=== PATIENT | male | born 1960 | race American Indian/Alaskan Native ===

== ENCOUNTER 2019-06-22 08:26 | Emergency (ER) | payer SELFPAY ==
--- NOTE | 2019-06-22 09:33 | Emergency Department Report ---
ED General Adult HPI - General Chief complaint: Seizure Stated complaint: POSSIBLE SEIZURE Time Seen by Provider: 06/22/19 09:32 Source: patient, EMS ( EMS documentation not available at time of chart dictation ), RN notes reviewed Mode of arrival: Stretcher Limitations: Other (the patient appears to be intoxicated and impaired. The patient does not exhibit decision making capacity) - History of Present Illness Initial comments: This is a 59-year-old gentleman. This patient is not known to this provider previously. The patient is reportedly brought to the hospital for being drunk on mouthwash and having had seizures. The patient at one point indicated history of seizures and taking phenytoin. The patient indicated that he is homeless. The patient indicates it is not homicidal or suicidal. The patient denies physical pain. The patient cannot recall having a seizure. The patient is a poor historian. Patient cannot describe exacerbating or relieving factors. He makes no complaint of hallucinations. -: unknown Severity scale (0 -10): 0 Quality: other Consistency: other Improves with: other Worsens with: other Associated Symptoms: other - Related Data Previous Rx's Medication Instructions Recorded Last Taken Type Multivitamin with Folic Acid [[facility]vs 400 mcg PO QDAY #30 tablet 06/22/19 Unknown Rx One Daily Essential Tablet] chlordiazePOXIDE [Librium] 25 mg PO Q6H PRN #20 capsule 06/23/19 Unknown Rx Allergies Allergy/AdvReac Type Severity Reaction Status Date / Time haloperidol [From Haldol] Allergy Unknown Verified 06/22/19 08:40 ED Review of Systems ROS: Stated complaint: POSSIBLE SEIZURE Other details as noted in HPI Comment: Unobtainable due to pts medical conditions (see hpi) Constitutional: denies: fever Eyes: denies: eye discharge ENT: denies: congestion Cardiovascular: denies: syncope Gastrointestinal: denies: abdominal pain Psychiatric: denies: homicidal thoughts, suicidal thoughts ED Past Medical Hx - Past Medical History Previous Medical History?: Yes Hx Seizures: Yes - Social History Smoking Status: Unknown if ever smoked Substance Use Type: Alcohol - Medications Home Medications: Home Medications Medication Instructions Recorded Confirmed Last Taken Type Multivitamin with Folic Acid [[facility]vs 400 mcg PO QDAY #30 tablet 06/22/19 Unknown Rx One Daily Essential Tablet] chlordiazePOXIDE [Librium] 25 mg PO Q6H PRN #20 capsule 06/23/19 Unknown Rx ED Physical Exam - General Limitations: Other (the patient is a poor historian) General appearance: alert, in no apparent distress - Head Head exam: Present: atraumatic, normocephalic - Eye Eye exam: Present: EOMI. Absent: normal appearance (right eye appears to be opacified by cataract.) - ENT ENT exam: Present: normal exam, mucous membranes moist, normal external ear exam - Neck Neck exam: Present: normal inspection, full ROM. Absent: tenderness, meningismus - Respiratory Respiratory exam: Present: normal lung sounds bilaterally. Absent: respiratory distress - Cardiovascular Cardiovascular Exam: Present: regular rate, normal rhythm, normal heart sounds. Absent: bradycardia, tachycardia, irregular rhythm, systolic murmur, diastolic murmur, rubs, gallop - GI/Abdominal GI/Abdominal exam: Present: soft. Absent: distended, tenderness, guarding, rebound, rigid, pulsatile mass - exam: Present: normal inspection, other (chaperoned by mainor Vasquez) External exam: Present: normal external exam - Extremities Exam Extremities exam: Present: normal inspection, full ROM, other (2+ pulses noted in the bilateral upper, lower extremities. There is no long bone tenderness. Musculoskeletal compartments are soft. The pelvis is stable.) - Back Exam Back exam: Present: normal inspection, full ROM. Absent: tenderness, CVA tenderness (R), CVA tenderness (L), paraspinal tenderness, vertebral tenderness - Neurological Exam Neurological exam: Present: alert (the patient is alert to name. The patient follows commands.), other (there is no facial droop. The tongue is midline. Extraocular movements are intact bilaterally. There is 5 out of 5 strength bilateral upper, and lower extremities. Sensation is intact to light touch in bilateral upper, lower extremities) - Psychiatric Psychiatric exam: Absent: homicidal ideation, suicidal ideation - Skin Skin exam: Present: warm, dry, intact, normal color. Absent: rash ED Course Vital Signs 06/22/19 06/22/19 06/22/19 08:36 08:41 08:44 Temperature 97.7 F Pulse Rate 83 81 Respiratory 18 13 Rate Blood Pressure Blood Pressure 114/70 106/76 [Left] O2 Sat by Pulse 95 96 96 Oximetry 06/22/19 06/22/19 06/22/19 10:10 10:14 10:15 Temperature 97.3 F L Pulse Rate 82 88 93 H Respiratory 17 12 17 Rate Blood Pressure 106/76 109/65 Blood Pressure 109/65 [Left] O2 Sat by Pulse 96 96 Oximetry 06/22/19 06/22/19 06/22/19 10:45 11:00 11:15 Temperature Pulse Rate 103 H 90 95 H Respiratory 12 14 Rate Blood Pressure 109/65 108/67 109/65 Blood Pressure [Left] O2 Sat by Pulse Oximetry 06/22/19 06/22/19 06/22/19 12:31 13:00 13:45 Temperature Pulse Rate 95 H 104 H 94 H Respiratory 13 19 12 Rate Blood Pressure 127/83 126/75 126/75 Blood Pressure [Left] O2 Sat by Pulse 91 95 97 Oximetry 06/22/19 06/22/19 06/22/19 14:15 14:31 14:45 Temperature Pulse Rate 96 H 87 84 Respiratory 11 L 10 L 11 L Rate Blood Pressure 127/83 127/83 105/72 Blood Pressure [Left] O2 Sat by Pulse 96 95 96 Oximetry 06/22/19 06/22/19 06/22/19 15:15 16:45 18:50 Temperature Pulse Rate 89 96 H 98 H Respiratory 12 16 14 Rate Blood Pressure 125/81 125/81 Blood Pressure 127/73 [Left] O2 Sat by Pulse 96 97 96 Oximetry 06/22/19 06/22/19 06/22/19 19:01 19:15 19:31 Temperature 98.5 F Pulse Rate 117 H 103 H Respiratory 13 14 Rate Blood Pressure 127/73 127/73 121/74 Blood Pressure 121/74 [Left] O2 Sat by Pulse 96 98 Oximetry 06/22/19 06/22/19 06/22/19 19:45 20:00 21:00 Temperature Pulse Rate 104 H 110 H 113 H Respiratory 11 L 11 L 15 Rate Blood Pressure 121/74 116/84 128/78 Blood Pressure [Left] O2 Sat by Pulse Oximetry 06/22/19 06/22/19 06/22/19 22:00 22:31 23:01 Temperature Pulse Rate 119 H 104 H 114 H Respiratory 14 12 15 Rate Blood Pressure 116/80 116/80 116/80 Blood Pressure [Left] O2 Sat by Pulse 97 97 97 Oximetry 06/22/19 06/22/19 06/23/19 23:31 23:32 00:01 Temperature Pulse Rate 111 H 101 H 115 H Respiratory 16 14 13 Rate Blood Pressure 116/80 116/80 116/80 Blood Pressure [Left] O2 Sat by Pulse 97 97 96 Oximetry 06/23/19 06/23/19 06/23/19 00:31 01:01 01:31 Temperature Pulse Rate 114 H 110 H 115 H Respiratory 12 15 16 Rate Blood Pressure 116/80 116/80 116/80 Blood Pressure [Left] O2 Sat by Pulse 97 99 96 Oximetry 06/23/19 06/23/19 06/23/19 02:01 02:31 03:01 Temperature Pulse Rate 126 H 106 H Respiratory 14 31 H 15 Rate Blood Pressure 116/80 116/80 116/80 Blood Pressure [Left] O2 Sat by Pulse 98 98 98 Oximetry 06/23/19 06/23/19 06/23/19 03:31 04:01 04:31 Temperature Pulse Rate 105 H 109 H 115 H Respiratory 14 17 29 H Rate Blood Pressure 116/80 116/80 116/80 Blood Pressure [Left] O2 Sat by Pulse 98 98 Oximetry 06/23/19 06/23/19 06/23/19 05:01 05:31 06:09 Temperature Pulse Rate 110 H 100 H 87 Respiratory 15 14 30 H Rate Blood Pressure 116/80 116/80 116/80 Blood Pressure [Left] O2 Sat by Pulse Oximetry 06/23/19 06/23/19 06:31 10:01 Temperature 99.4 F Pulse Rate 105 H 101 H Respiratory 16 14 Rate Blood Pressure 116/80 Blood Pressure 141/84 [Left] O2 Sat by Pulse 97 Oximetry - Reevaluation(s) Reevaluation #1: 06/22/19 10:24 Differential diagnosis, including not limited to: Intracranial injury, cervical spine injury, intoxication, homelessness, seizure, pseudoseizure Assessment and plan: 59-year-old gentleman who appears to be confused with complaints of being drunk, possible seizure, consuming mouthwash. The patient has not endorsed homicidality and suicidality, he is not violent, however, he does not exhibit decision making capacity at this time, and is not able to care for himself at this time. He is placed on a hold. As needed Ativan is ordered, in conjunction with Cassidy. Screening laboratory studies ordered, CT scan brain and cervical spine ordered, case management consultation ordered, psychiatric consultation ordered. Once initial laboratory studies have resulted, we will discussed with the [facility] Control [facility]. From medical standpoint, we anticipate that patient will require supportive care. Reevaluation #2: 06/22/19 14:17 ct head c spine xr chest negative for acute disease Reevaluation #3: 06/22/19 14:28 Laboratory studies are reviewed and appreciated. Recontacted [facility] and we discussed the case with Mr. Busby. He in turn has discussed the case with her medical home organizer, Dr. Gaytan At this point time, it appears that the patient is most likely intoxicated off of ethanol alcohol. Dialysis is not recommended, and neither is fomepizole therapy. Poison Control Center is in agreement with repeat labs at the 12 hour inna, therefore, they've been ordered for 10:00 PM. We will continue the patient on supportive care, and he will be transferred to the oncoming physician, Dr. Markham, to follow-up on laboratory studies. If patient has resolution of intoxication, and laboratory studies corroborates improvement and metabolic abnormalities, would anticipate discharge. However, the patient may require a prolonged period of time of observation here in the emergency room. Reevaluation #4: 06/23/19 10:18 The patient is reassessed. He is not homicidal or suicidal. He is clinically sober at this time. Repeat laboratory studies show expected resolution of alcohol intoxication and improvement and serum osmolality. The patient is taken off of his emergency room hold. He is now sober at this time. He is standing steadily on 2 feet and getting himself dressed. He was seen by psychiatry, who provided outpatient recommendations. He was found to be in mild alcohol withdrawal, but does not meet criteria for hospitalization for alcohol withdrawal at this time. A Librium prescription will be ordered. The patient can follow-up with an outpatient primary care doctor. ED Medical Decision Making - Lab Data Result diagrams: 06/22/19 09:59 06/23/19 08:00 Vital Signs 06/22/19 06/22/19 08:41 08:44 Temperature 97.7 F Pulse Rate 83 81 Respiratory 18 13 Rate Blood Pressure 114/70 106/76 [Left] O2 Sat by Pulse 96 96 Oximetry Lab Results 06/22/19 06/22/19 Range/Units 09:59 09:59 WBC 5.7 (4.5-11.0) K/mm3 RBC 4.02 (3.65-5.03) M/mm3 Hgb 12.7 (11.8-15.2) gm/dl Hct 38.0 (35.5-45.6) % MCV 95 H (84-94) fl MCH 32 (28-32) pg MCHC 33 (32-34) % RDW 16.4 H (13.2-15.2) % Plt Count 123 L (140-440) K/mm3 PT 12.9 (12.2-14.9) Sec. INR 1.00 (0.87-1.13) - EKG Data -: EKG Interpreted by [facility] EKG shows normal: sinus rhythm Rate: normal - EKG Data When compared to previous EKG there are: previous EKG unavailable 06/22/19 10:26 There is no prior EKG available for comparison. This is a sinus rhythm, 73 beats for minute, normal axis, QTC is 453 ms, there is low voltage, there is poor R-wave progression, there is left ventricular hypertrophy, the EKG is abnormal, the EKG is not consistent with ST elevation myocardial infarction. - Radiology Data Radiology results: pending Critical care attestation.: If time is entered above; I have spent that time in minutes in the direct care of this critically ill patient, excluding procedure time. ED Disposition Clinical Impression: Homelessness, Alcohol intoxication Disposition: DC-01 TO HOME OR SELFCARE Is pt being admited?: No Does the pt Need Aspirin: No Condition: Stable Additional Instructions: Do not drive or operate motor vehicles for the next 6 months. Take the medications as prescribed. Recommend follow-up with the primary care doctor within the next month. Return to the emergency room right away with new, worsened, different symptoms, or symptoms not present on the initial emergency room evaluation. Do not operate motor vehicles muscular to do so by a primary care doctor. Recommend abstinence from alcohol, and recommend that patient not drink mouthwash. Long-term consumption of alcohol and consumption of mouthwash may cause intoxication, disability, paralysis, loss of quality of life and . Prescriptions: Multivitamin with Folic Acid [Cvs One Daily Essential Tablet] 400 mcg PO QDAY #30 tablet chlordiazePOXIDE [Librium] 25 mg PO Q6H PRN #20 capsule PRN Reason: Alcohol Withdrawal Referrals: [facility] [Provider Group] - 3-5 Days [facility] [Provider Group] - 3-5 Days
[2019-06-22] MEDS ORDERED: ATIVAN IM PRN (09:40)
[2019-06-22] MEDS ORDERED: HALDOL IM PRN (09:40)
[2019-06-22] MEDS ORDERED: GEODON IM ONE (10:08)
[2019-06-22 10:12] LABS: Hemoglobin 12.7 gm/dl (11.8-15.2); Mean Corpuscular HGB Conc 33 % (32-34); Mean Corpuscular Volume 95 fl (84-94); Platelet Count 123 K/mm3 (140-440); Red Blood Count 4.02 M/mm3 (3.65-5.03); Red Cell Distribution Width 16.4 % (13.2-15.2)
[2019-06-22] MEDS ORDERED: WATER FOR INJ Sterile (PF) 10 ML ONE (10:13)
[2019-06-22 10:28] LABS: Alanine Aminotransferase 17 units/L (7-56); Albumin 4.2 g/dL (3.9-5); BUN/Creatinine Ratio 13; Blood Urea Nitrogen 8 mg/dL (9-20); Calcium 8.3 mg/dL (8.4-10.2); Hemolysis Index 6
[2019-06-22] MEDS ORDERED: ZOFRAN IV ONE (10:57)
[2019-06-22] MEDS ORDERED: LIBRIUM PO PRN ×2 (10:57)
[2019-06-22] MEDS ORDERED: TYLENOL PO PRN (10:57)
[2019-06-22] MEDS ORDERED: ATIVAN PO PRN ×2 (10:57)
[2019-06-22] MEDS ORDERED: D5/0.45NS 1,000 ML IV SCH (11:00)
[2019-06-22] MEDS ORDERED: THERAGRAN Tab PO SCH (11:00)
[2019-06-22] MEDS ORDERED: ATIVAN IV ONE (11:21)
[2019-06-22] MEDS ORDERED: GEODON IM PRN (11:21)
[2019-06-22] MEDS ORDERED: VITAMIN B-1 100 MG, FOLVITE 1 MG, INFUVITE 10 ML in NACL 0.9% 1000 ML 1,000 ML IV ONE (12:00)
--- NOTE | 2019-06-22 12:44 | Cat Scan Report ---
CT head/brain wo con INDICATION / CLINICAL INFORMATION: 59 years Male; sz weak amd. TECHNIQUE: Routine CT head without contrast. All CT scans at this location are performed using CT dos e reduction for ALARA by means of automated exposure control. COMPARISON: None. FINDINGS: BRAIN / INTRACRANIAL CONTENTS: No acute hemorrhage, mass effect, midline shift, hydrocephalus, or acu te, large territorial infarct. [id number] cerebral and cerebellar atrophy. There are minimal areas of decreased attenuation in the white matter of the cerebral hemispheres. The se are nonspecific findings and may be related to microangiopathy (hypertension, diabetes, atheroscle rosis), given the patient's age. It might be difficult to evaluate for small areas of ischemia withou t diffusion imaging by MRI. CRANIOCERVICAL JUNCTION: No significant abnormality. ORBITS: No significant abnormality of visualized orbits. SINUSES / MASTOIDS: There is minimal mucosal thickening in the mastoids and ethmoids. ADDITIONAL FINDINGS: Punctate calcification or very small radiopaque foreign body is seen in the subc utaneous soft tissues superficial the left frontal region. There appears to be a small scar in this l ocation as well. Please clinically correlate. No significant atherosclerotic disease appreciated. IMPRESSION: 1. No focal mass, hemorrhage, hydrocephalus, or acute, large territorial infarct. Signer Name: Tristan Butler MD, III Signed: 06/22/2019 12:40 PM Workstation Name: [id number]
--- NOTE | 2019-06-22 12:49 | Cat Scan Report ---
CT cervical spine wo con INDICATION / CLINICAL INFORMATION: 59 years Male; sz weak amd. TECHNIQUE: Axial CT images of the cervical spine were obtained. Sagittal and coronal reformatted images were pr oduced. All CT scans at this location are performed using CT dose reduction for ALARA by means of aut omated exposure control. COMPARISON: None available. FINDINGS: POST-SURGICAL CHANGES: None. ALIGNMENT: Normal cervical lordosis seen without significant scoliosis. VERTEBRAE: No signs of fracture. Vertebral bodies are grossly normal in height throughout. Mild face t joint disease with no significant osseous foraminal narrowing appreciated. INTRAVERTEBRAL DISCS: Mild disc disease seen at C3-4. There is mild canal narrowing. Minimal disc dis ease seen at other levels. Overall, no significant canal stenosis appreciated. PARASPINAL SOFT TISSUES: No significant abnormality. ADDITIONAL FINDINGS: Old clavicular fracture noted on the right. IMPRESSION: 1. No signs of acute bony trauma to the cervical spine. Signer Name: Tristan Butler MD, III Signed: 06/22/2019 12:44 PM Workstation Name: [id number]
--- NOTE | 2019-06-22 12:59 | XRay Report ---
CHEST 1 VIEW INDICATION / CLINICAL INFORMATION: sz weak. COMPARISON: None available. FINDINGS: SUPPORT DEVICES: None. HEART / MEDIASTINUM: No significant abnormality. LUNGS / PLEURA: No significant pulmonary or pleural abnormality. No pneumothorax. ADDITIONAL FINDINGS: There are healed right-sided rib fractures. IMPRESSION: 1 No acute abnormality. Signer Name: David Saunders MD Signed: 06/22/2019 12:55 PM Workstation Name: [id number]
[2019-06-22 15:36] LABS: BUN/Creatinine Ratio 10; Blood Urea Nitrogen 6 mg/dL (9-20); Calcium 7.6 mg/dL (8.4-10.2); Hemolysis Index 4
[2019-06-22 18:02] LABS: Color,Urine Straw (Yellow)
[2019-06-22 18:03] LABS: Bilirubin,Urine NEG (Negative); Blood,Urine SM (Negative); Mucus,Urine FEW /HPF; Protein,Urine <15 mg/dL mg/dL (Negative); Urobilinogen,Urine < 2.0 mg/dL (<2.0)
[2019-06-22 18:07] LABS: Amphetamine Screen,Urine PRESUMPTIVE NEGATIVE; Benzodiazepines Screen,Urine PRESUMPTIVE NEGATIVE; Cannabinoid Screen,Urine PRESUMPTIVE NEGATIVE; Cocaine Screen,Urine PRESUMPTIVE NEGATIVE; Methadone Screen,Urine PRESUMPTIVE NEGATIVE; Opiate Screen,Urine PRESUMPTIVE NEGATIVE
--- NOTE | 2019-06-22 20:20 | Event Note ---
Date: 06/22/19 Patient currently refusing blood work and is sleeping. Patient made aware of the need for blood work to evaluate his liver alcohol and osmolality. Patient still is refusing this.
[2019-06-22] MEDS ORDERED: ZOFRAN IV PRN (21:26)
[2019-06-22] MEDS: ATIVAN IV PRN (21:34)
[2019-06-23] MEDS: ATIVAN IV PRN (02:55)
--- NOTE | 2019-06-23 08:48 | Consultation ---
History of Present Illness - Reason for Consult Consult date: 06/23/19 Reason for consult: Mental Health Evaluation Requesting physician: BETZY PEDRAZA - Chief Complaint Chief complaint: "I can handle my issues" - History of Present Psychiatric Illness 59 y.o. AA male who presented to the ER for alcohol intoxication. Today the patient was calm and cooperative during the assessment. He stated that he has a "drinking problem, but can handle his issues. He stated that he have been drinking for 20 plus years. He stated that he does not have family, because most of them are "." He stated that he attended rehab services in the past, but relapsed. He is aware of the medical problems that can stem from excessive alcohol intake. He stated that he is willing to attend rehab services once disc harged, but his mean issues is being "homeless." He stated that he need somewhere to live. He denies being depressed, SI/HI's, and AVH's. He denies erratic sleep and a poor appetite. He denies recreational drug use. The patient stated that he have had seizures in the past. Medications and Allergies Allergies Allergy/AdvReac Type Severity Reaction Status Date / Time haloperidol [From Haldol] Allergy Unknown Verified 06/22/19 08:40 Home Medications Medication Instructions Recorded Confirmed Last Taken Type Multivitamin with Folic Acid [Cvs 400 mcg PO QDAY #30 tablet 06/22/19 Unknown Rx One Daily Essential Tablet] chlordiazePOXIDE [Librium] 25 mg PO Q6H PRN #20 capsule 06/23/19 Unknown Rx Active Meds: Active Medications Acetaminophen (Tylenol) 650 mg PO Q6HR PRN PRN Reason: PAIN Chlordiazepoxide HCl (Librium) 50 mg PO Q1HR PRN PRN Reason: CIWA-Ar 8-15 Chlordiazepoxide HCl (Librium) 100 mg PO Q1HR PRN PRN Reason: CIWA-Ar 16-25 Folic Acid (Folvite) 1 mg PO QDAY ELDA Dextrose/Sodium Chloride (D5/0.45ns) 1,000 mls @ 0 mls/hr IV DIRECT ELDA Last Admin: 06/22/19 12:05 Dose: 999 mls/hr Documented by: Lorazepam (Ativan) 2 mg IM Q4HR PRN PRN Reason: Agitation Lorazepam (Ativan) 2 mg PO Q1HR PRN PRN Reason: CIWA-Ar 8-15 Lorazepam (Ativan) 4 mg PO Q1HR PRN PRN Reason: CIWA-Ar 16-25 Lorazepam (Ativan) 1 mg IV Q1H PRN PRN Reason: Alcohol Withdrawal Last Admin: 06/23/19 02:55 Dose: 1 mg Documented by: Multivitamins (Theragran Tab) 1 each PO QDAY ELDA Last Admin: 06/22/19 17:20 Dose: 1 each Documented by: Ondansetron HCl (Zofran) 4 mg IV ONCE PRN PRN Reason: Nausea And Vomiting Ziprasidone (Geodon) 10 mg IM Q2H PRN PRN Reason: Agitation Past psychiatric history - Past Medical History Past Medical History: No medical history, seizures Past Surgical History: No surgical history - past Psychiatric treatment and history psychiatric treatment history: Hx of alcohol abuse. Denies a fam psy hx. - Social History Social history: lives with family Mental Status Exam - Vital signs Last Vital Signs Temp 98.5 F 06/22/19 19:15 Pulse 105 H 06/23/19 06:31 Resp 16 06/23/19 06:31 BP 116/80 06/23/19 06:31 Pulse Ox 98 06/23/19 04:01 - Exam Narrative exam: MSE: Appearance: calm, cooperative Behavior: regular eye contact Speech: regular rate and tone Mood: "okay" Affect: congruent to mood Thought Process: circumstantial Thought Content: denies SI/HI's and AVH's Motor Activity: lying in bed Cognition: A/O x 3 Insight: fair Judgment: fair Results Result Diagrams: 06/22/19 09:59 06/23/19 08:00 Abnormal lab results 06/22/19 06/22/19 06/22/19 Range/Units 09:59 09:59 09:59 MCV 95 H (84-94) fl RDW 16.4 H (13.2-15.2) % Plt Count 123 L (140-440) K/mm3 Chloride (98-107) mmol/L Carbon Dioxide 21 L (22-30) mmol/L BUN 8 L (9-20) mg/dL Creatinine 0.6 L (0.8-1.5) mg/dL Glucose 124 H (75-100) mg/dL POC Glucose (70-105) Calcium 8.3 L (8.4-10.2) mg/dL Total Protein 8.7 H (6.3-8.2) g/dL Salicylates 1.5 L (2.8-20.0) mg/dL Acetaminophen (10.0-30.0) ug/mL Plasma/Serum Alcohol (0-0.07) % 06/22/19 06/22/19 06/22/19 Range/Units 09:59 09:59 15:02 MCV (84-94) fl RDW (13.2-15.2) % Plt Count (140-440) K/mm3 Chloride 107.8 H (98-107) mmol/L Carbon Dioxide (22-30) mmol/L BUN 6 L (9-20) mg/dL Creatinine 0.6 L (0.8-1.5) mg/dL Glucose 231 H (75-100) mg/dL POC Glucose (70-105) Calcium 7.6 L (8.4-10.2) mg/dL Total Protein (6.3-8.2) g/dL Salicylates (2.8-20.0) mg/dL Acetaminophen < 5.0 L (10.0-30.0) ug/mL Plasma/Serum Alcohol 0.42 H (0-0.07) % 06/22/19 06/22/19 Range/Units 15:02 19:07 MCV (84-94) fl RDW (13.2-15.2) % Plt Count (140-440) K/mm3 Chloride (98-107) mmol/L Carbon Dioxide (22-30) mmol/L BUN (9-20) mg/dL Creatinine (0.8-1.5) mg/dL Glucose (75-100) mg/dL POC Glucose 116 H (70-105) Calcium (8.4-10.2) mg/dL Total Protein (6.3-8.2) g/dL Salicylates (2.8-20.0) mg/dL Acetaminophen (10.0-30.0) ug/mL Plasma/Serum Alcohol 0.27 H (0-0.07) % All other labs normal. Assessment and Plan Assessment and plan: Impression: Alcohol Use DO. Today the patient was calm and cooperative during the assessment. Mild tremors noted (etoh). DDx: R/O Mood DO Recommendations/Plan: Continue CIWA. Discussed the importance to abstain from alcohol consumption (etoh) with the patient, he verbalized understanding. Case Mgmt involvement, the patient will need assistance with placement. Psy sign off. Dipso: The patient can follow up with [facility] for outpatient rehab services. Will staff with Dr Rosanna Fraire.
[2019-06-23 08:57] LABS: BUN/Creatinine Ratio 9; Blood Urea Nitrogen 6 mg/dL (9-20); Calcium 8.2 mg/dL (8.4-10.2); Hemolysis Index 16
[2019-06-23] MEDS ORDERED: FOLVITE PO SCH (10:00)
[2019-06-23 10:02] VITALS: BP 141/84
== END 2019-06-23 12:41 | disposition home or self-care (01) ==
LOC: ED 08:26
DX: F10.129 Alcohol abuse with intoxication, unspecified (principal); Z59.0 Homelessness; Z88.8 Allergy status to other drugs, medicaments and biological substances
CPT/HCPCS: 36415; 70450; 71045; 72125; 80048; 80053; 80185; 80307; 81001; 82550; 82962; 83735; 83930; 85027; 85610; 87086; 93005; 93010; J2060; J3411; J3486; J7030; 80186; 80320; 96365; 96366; 96372; 96375; 96376; G0480

== ENCOUNTER 2019-06-24 00:18 | Emergency (ER) | payer SELFPAY ==
--- NOTE | 2019-06-24 02:44 | Emergency Department Report ---
<ANASTASIA GOMEZ - Last Filed: 06/25/19 06:31> ED General Adult HPI - General Chief complaint: Seizure Stated complaint: SEIZURE Time Seen by Provider: 06/24/19 01:29 Source: EMS Mode of arrival: Ambulatory Limitations: No Limitations - History of Present Illness Initial comments: pt is a 59 yo male who presents to the ED with c/o a "light seizure" that occurred [employer]. he states that he had a seizure yesterday. he states that tonight he had a "light" seizure in a store. EMS brought patient in and the store denies any witnessed seizure activity. pt denies any ETOH use or drinking of mouthwash tonight. he denies any HI, SI, hallucinations. he denies any CP, SOB, V/D, fever, chills, abdominal pain any other symptoms. he states he thinks he used to take dilantin for his seizures but is not sure when the last time he took it was. pt was evaluated in the ED last night for the same symptoms. pt was found to be intoxicated during his last visit and there was concern for drinking of mouthwash. pt had a mental health evaluation. he also had a social work evaluation. he was given resources and sent to a nursing home. it appears pt is homeless as he is wearing paper scrubs and socks from the hospital. Severity scale (0 -10): 0 - Related Data Previous Rx's Medication Instructions Recorded Last Taken Type Multivitamin with Folic Acid [[facility] 400 mcg PO QDAY #30 tablet 06/22/19 Unknown Rx One Daily Essential Tablet] chlordiazePOXIDE [Librium] 25 mg PO Q6H PRN #20 capsule 06/23/19 Unknown Rx Allergies Allergy/AdvReac Type Severity Reaction Status Date / Time haloperidol [From Haldol] Allergy Unknown Verified 06/22/19 08:40 ED Review of Systems Comment: All other systems reviewed and negative ED Past Medical Hx - Past Medical History Previous Medical History?: Yes Hx Seizures: Yes - Social History Smoking Status: Former Smoker Substance Use Type: None - Medications Home Medications: Home Medications Medication Instructions Recorded Confirmed Last Taken Type Multivitamin with Folic Acid [[facility] 400 mcg PO QDAY #30 tablet 06/22/19 Unknown Rx One Daily Essential Tablet] chlordiazePOXIDE [Librium] 25 mg PO Q6H PRN #20 capsule 06/23/19 Unknown Rx ED Physical Exam - General Limitations: No Limitations General appearance: alert, appears intoxicated - Head Head exam: Present: atraumatic, normocephalic - Eye Eye exam: Present: normal appearance, PERRL, EOMI - ENT ENT exam: Present: mucous membranes moist - Respiratory Respiratory exam: Present: normal lung sounds bilaterally. Absent: respiratory distress, wheezes, rales, rhonchi, stridor, chest wall tenderness, accessory muscle use, decreased breath sounds, prolonged expiratory - Cardiovascular Cardiovascular Exam: Present: regular rate, normal rhythm, normal heart sounds. Absent: systolic murmur, diastolic murmur, rubs, gallop - Neurological Exam Neurological exam: Present: alert, CN II-XII intact. Absent: motor sensory deficit - Psychiatric Psychiatric exam: Present: normal affect, normal mood - Skin Skin exam: Present: warm, dry, intact ED Medical Decision Making - Lab Data Result diagrams: 06/24/19 03:02 06/24/19 03:02 Lab Results 06/24/19 06/24/19 06/24/19 Range/Units 03:02 03:02 03:02 WBC 6.6 (4.5-11.0) K/mm3 RBC 3.44 L (3.65-5.03) M/mm3 Hgb 11.0 L (11.8-15.2) gm/dl Hct 32.5 L (35.5-45.6) % MCV 95 H (84-94) fl MCH 32 (28-32) pg MCHC 34 (32-34) % RDW 16.0 H (13.2-15.2) % Plt Count 98 L (140-440) K/mm3 Add Manual Diff Complete Total Counted 100 Seg Neuts % (Manual) 58.0 (40.0-70.0) % Band Neutrophils % 1.0 % Lymphocytes % (Manual) 22.0 (13.4-35.0) % Reactive Lymphs % (Man) 0 % Monocytes % (Manual) 7.0 (0.0-7.3) % Eosinophils % (Manual) 12.0 H (0.0-4.3) % Basophils % (Manual) 0 (0.0-1.8) % Metamyelocytes % 0 % Myelocytes % 0 % Promyelocytes % 0 % Blast Cells % 0 % Nucleated RBC % Not Reportable Seg Neutrophils # Man 3.8 (1.8-7.7) K/mm3 Band Neutrophils # 0.1 K/mm3 Lymphocytes # (Manual) 1.5 (1.2-5.4) K/mm3 Abs React Lymphs (Man) 0.0 K/mm3 Monocytes # (Manual) 0.5 (0.0-0.8) K/mm3 Eosinophils # (Manual) 0.8 H (0.0-0.4) K/mm3 Basophils # (Manual) 0.0 (0.0-0.1) K/mm3 Metamyelocytes # 0.0 K/mm3 Myelocytes # 0.0 K/mm3 Promyelocytes # 0.0 K/mm3 Blast Cells # 0.0 K/mm3 WBC Morphology Not Reportable Hypersegmented Neuts Not Reportable Hyposegmented Neuts Not Reportable Hypogranular Neuts Not Reportable Smudge Cells Not Reportable Toxic Granulation Not Reportable Toxic Vacuolation Not Reportable Dohle Bodies Not Reportable Pelger-Huet Anomaly Not Reportable [place] Rods Not Reportable Platelet Estimate Cons Clumped Platelets Not Reportable Plt Clumps, EDTA Not Reportable Large Platelets Few Giant Platelets Not Reportable Platelet Satelliting Not Reportable Plt Morphology Comment Not Reportable RBC Morphology Not Reportable Dimorphic RBCs Not Reportable Polychromasia Not Reportable Hypochromasia Not Reportable Poikilocytosis Not Reportable Anisocytosis 1+ Microcytosis Not Reportable Macrocytosis Not Reportable Spherocytes Not Reportable Pappenheimer Bodies Not Reportable Sickle Cells Not Reportable Target Cells Not Reportable Tear Drop Cells Not Reportable Ovalocytes Not Reportable Helmet Cells Not Reportable Estrada-Helen Bodies Not Reportable [place] Rings Not Reportable Taylor Cells Not Reportable Bite Cells Not Reportable Crenated Cell Not Reportable Elliptocytes Not Reportable Acanthocytes (Spur) Not Reportable Rouleaux Not Reportable Hemoglobin C Crystals Not Reportable Schistocytes Not Reportable Malaria parasites Not Reportable Ahmet Bodies Not Reportable Hem Pathologist Commnt No Sodium 140 (137-145) mmol/L Potassium 3.7 (3.6-5.0) mmol/L Chloride 101.8 (98-107) mmol/L Carbon Dioxide 19 L (22-30) mmol/L Anion Gap 23 mmol/L BUN 5 L (9-20) mg/dL Creatinine 0.7 L (0.8-1.5) mg/dL Estimated GFR > 60 ml/min BUN/Creatinine Ratio 7 % Glucose 124 H (75-100) mg/dL Osmolality 344 Mosm/kg Calcium 7.8 L (8.4-10.2) mg/dL Total Bilirubin 0.20 (0.1-1.2) mg/dL AST 21 (5-40) units/L ALT 14 (7-56) units/L Alkaline Phosphatase 94 (35-129) units/L Total Protein 7.5 (6.3-8.2) g/dL Albumin 4.1 (3.9-5) g/dL Albumin/Globulin Ratio 1.2 % Salicylates (2.8-20.0) mg/dL Acetaminophen (10.0-30.0) ug/mL Plasma/Serum Alcohol (0-0.07) % 06/24/19 06/24/19 06/24/19 Range/Units 03:02 03:02 03:02 WBC (4.5-11.0) K/mm3 RBC (3.65-5.03) M/mm3 Hgb (11.8-15.2) gm/dl Hct (35.5-45.6) % MCV (84-94) fl MCH (28-32) pg MCHC (32-34) % RDW (13.2-15.2) % Plt Count (140-440) K/mm3 Add Manual Diff Total Counted Seg Neuts % (Manual) (40.0-70.0) % Band Neutrophils % % Lymphocytes % (Manual) (13.4-35.0) % Reactive Lymphs % (Man) % Monocytes % (Manual) (0.0-7.3) % Eosinophils % (Manual) (0.0-4.3) % Basophils % (Manual) (0.0-1.8) % Metamyelocytes % % Myelocytes % % Promyelocytes % % Blast Cells % % Nucleated RBC % Seg Neutrophils # Man (1.8-7.7) K/mm3 Band Neutrophils # K/mm3 Lymphocytes # (Manual) (1.2-5.4) K/mm3 Abs React Lymphs (Man) K/mm3 Monocytes # (Manual) (0.0-0.8) K/mm3 Eosinophils # (Manual) (0.0-0.4) K/mm3 Basophils # (Manual) (0.0-0.1) K/mm3 Metamyelocytes # K/mm3 Myelocytes # K/mm3 Promyelocytes # K/mm3 Blast Cells # K/mm3 WBC Morphology Hypersegmented Neuts Hyposegmented Neuts Hypogranular Neuts Smudge Cells Toxic Granulation Toxic Vacuolation Dohle Bodies Pelger-Huet Anomaly Doming[place] Rods Platelet Estimate Clumped Platelets Plt Clumps, EDTA Large Platelets Giant Platelets Platelet Satelliting Plt Morphology Comment RBC Morphology Dimorphic RBCs Polychromasia Hypochromasia Poikilocytosis Anisocytosis Microcytosis Macrocytosis Spherocytes Pappenheimer Bodies Sickle Cells Target Cells Tear Drop Cells Ovalocytes Helmet Cells Estrada-Helen Bodies [place] Rings Elizabeth Cells Bite Cells Crenated Cell Elliptocytes Acanthocytes (Spur) Rouleaux Hemoglobin C Crystals Schistocytes Malaria parasites Ahmet Bodies Hem Pathologist Commnt Sodium (137-145) mmol/L Potassium (3.6-5.0) mmol/L Chloride (98-107) mmol/L Carbon Dioxide (22-30) mmol/L Anion Gap mmol/L BUN (9-20) mg/dL Creatinine (0.8-1.5) mg/dL Estimated GFR ml/min BUN/Creatinine Ratio % Glucose (75-100) mg/dL Osmolality Mosm/kg Calcium (8.4-10.2) mg/dL Total Bilirubin (0.1-1.2) mg/dL AST (5-40) units/L ALT (7-56) units/L Alkaline Phosphatase (35-129) units/L Total Protein (6.3-8.2) g/dL Albumin (3.9-5) g/dL Albumin/Globulin Ratio % Salicylates < 0.3 L (2.8-20.0) mg/dL Acetaminophen < 5.0 L (10.0-30.0) ug/mL Plasma/Serum Alcohol 0.24 H (0-0.07) % 06/24/19 Range/Units 07:58 WBC (4.5-11.0) K/mm3 RBC (3.65-5.03) M/mm3 Hgb (11.8-15.2) gm/dl Hct (35.5-45.6) % MCV (84-94) fl MCH (28-32) pg MCHC (32-34) % RDW (13.2-15.2) % Plt Count (140-440) K/mm3 Add Manual Diff Total Counted Seg Neuts % (Manual) (40.0-70.0) % Band Neutrophils % % Lymphocytes % (Manual) (13.4-35.0) % Reactive Lymphs % (Man) % Monocytes % (Manual) (0.0-7.3) % Eosinophils % (Manual) (0.0-4.3) % Basophils % (Manual) (0.0-1.8) % Metamyelocytes % % Myelocytes % % Promyelocytes % % Blast Cells % % Nucleated RBC % Seg Neutrophils # Man (1.8-7.7) K/mm3 Band Neutrophils # K/mm3 Lymphocytes # (Manual) (1.2-5.4) K/mm3 Abs React Lymphs (Man) K/mm3 Monocytes # (Manual) (0.0-0.8) K/mm3 Eosinophils # (Manual) (0.0-0.4) K/mm3 Basophils # (Manual) (0.0-0.1) K/mm3 Metamyelocytes # K/mm3 Myelocytes # K/mm3 Promyelocytes # K/mm3 Blast Cells # K/mm3 WBC Morphology Hypersegmented Neuts Hyposegmented Neuts Hypogranular Neuts Smudge Cells Toxic Granulation Toxic Vacuolation Dohle Bodies Pelger-Huet Anomaly Dominga Rods Platelet Estimate Clumped Platelets Plt Clumps, EDTA Large Platelets Giant Platelets Platelet Satelliting Plt Morphology Comment RBC Morphology Dimorphic RBCs Polychromasia Hypochromasia Poikilocytosis Anisocytosis Microcytosis Macrocytosis Spherocytes Pappenheimer Bodies Sickle Cells Target Cells Tear Drop Cells Ovalocytes Helmet Cells Estrada-Helen Bodies [place] Rings Taylor Cells Bite Cells Crenated Cell Elliptocytes Acanthocytes (Spur) Rouleaux Hemoglobin C Crystals Schistocytes Malaria parasites Ahmet Bodies Hem Pathologist Commnt Sodium (137-145) mmol/L Potassium (3.6-5.0) mmol/L Chloride (98-107) mmol/L Carbon Dioxide (22-30) mmol/L Anion Gap mmol/L BUN (9-20) mg/dL Creatinine (0.8-1.5) mg/dL Estimated GFR ml/min BUN/Creatinine Ratio % Glucose (75-100) mg/dL Osmolality Mosm/kg Calcium (8.4-10.2) mg/dL Total Bilirubin (0.1-1.2) mg/dL AST (5-40) units/L ALT (7-56) units/L Alkaline Phosphatase (35-129) units/L Total Protein (6.3-8.2) g/dL Albumin (3.9-5) g/dL Albumin/Globulin Ratio % Salicylates (2.8-20.0) mg/dL Acetaminophen (10.0-30.0) ug/mL Plasma/Serum Alcohol 0.08 H (0-0.07) % - Medical Decision Making vital are normal, labs significant for ETOH level of 0.24, otherwise labs are normal, pt observed in the ED and had no seizure activity s/o Dr. Siddiqi, ER attending pending sobriety and criminal justice social worker consult due to homelessness ED Disposition Clinical Impression: Homelessness Alcohol intoxication Qualifiers: Complication of substance-induced condition: uncomplicated Qualified Code(s): F10.920 - Alcohol use, unspecified with intoxication, uncomplicated Is pt being admited?: No Does the pt Need Aspirin: No Condition: Stable Referrals: PRIMARY CARE, [Primary Care Provider] - 3-5 Days <MYRNA CASTELLANOS - Last Filed: 06/26/19 01:19> ED Review of Systems ROS: Stated complaint: SEIZURE Other details as noted in HPI ED Course Vital Signs 06/24/19 06/24/19 06/24/19 00:33 07:24 10:19 Temperature 98.0 F Pulse Rate 97 H 105 H 87 Respiratory 16 18 18 Rate Blood Pressure 110/70 134/66 145/60 [Left] O2 Sat by Pulse 96 100 100 Oximetry ED Medical Decision Making - Lab Data Result diagrams: 06/24/19 03:02 06/24/19 03:02 Critical care attestation.: If time is entered above; I have spent that time in minutes in the direct care of this critically ill patient, excluding procedure time. ED Disposition Is pt being admited?: No
[2019-06-24 03:38] LABS: Hematocrit 32.5 % (35.5-45.6); Mean Corpuscular HGB Conc 34 % (32-34); Mean Corpuscular Volume 95 fl (84-94); Red Blood Count 3.44 M/mm3 (3.65-5.03)
[2019-06-24 04:12] LABS: Alanine Aminotransferase 14 units/L (7-56); Albumin 4.1 g/dL (3.9-5); BUN/Creatinine Ratio 7; Blood Urea Nitrogen 5 mg/dL (9-20); Calcium 7.8 mg/dL (8.4-10.2); Hemolysis Index 27
[2019-06-24 04:53] LABS: Band Neutrophils # (Manual) 0.1 K/mm3; Basophils % (Manual) 0 % (0.0-1.8); Total Cells Counted 100
[2019-06-24 04:55] LABS: Anisocytosis 1+; Large Platelets Few; Platelet Estimate Cons
[2019-06-24 04:56] LABS: Platelet Count 98 K/mm3 (140-440)
[2019-06-24 10:20] VITALS: BP 145/60
== END 2019-06-24 10:19 ==
LOC: ED 00:18
DX: R56.9 Unspecified convulsions (principal); Z59.0 Homelessness; Z87.891 Personal history of nicotine dependence; Z88.8 Allergy status to other drugs, medicaments and biological substances
CPT/HCPCS: 36415; 80053; 80320; 83930; 85007; 85025; G0480

== ENCOUNTER 2019-08-24 22:39 | Emergency (ER) | payer SELFPAY ==
[2019-08-24] MEDS ORDERED: chlordiazePOXIDE 25 MG CAP PO PRN ×2 (22:51)
[2019-08-24] MEDS ORDERED: LORazepam 2 MG TAB PO PRN (22:51)
--- NOTE | 2019-08-24 22:54 | Emergency Department Report ---
ED General Adult HPI - General Chief complaint: Seizure Stated complaint: SEIZURE Time Seen by Provider: 08/24/19 22:43 Source: patient, EMS (verbal report received from emergency medical services. EMS records not available at time of chart dictation.), RN notes reviewed, old records reviewed Mode of arrival: Stretcher Limitations: Other (patient intoxicated. Patient does not have decision-making capacity at this time.) - History of Present Illness Initial comments: The patient is a 59-year-old gentleman whom I have by waited in the past. His past medical history includes poor vision in the right eye, probable cataract, alcohol abuse, homelessness, possible seizure disorder. He is brought to the hospital by [facility] services for possible seizure. He was reportedly at an outside gas station. The patient thinks that he had a seizure but is not sure. He denies physical pain. He states he's not been consuming alcohol today. The patient is a poor historian and obviously intoxicated. EMS stated that the seizure is not witnessed. They report normal Accu-Chek in the field. They state the patient is ambulatory in the field. The patient makes no complaint of homicidality or suicidality. -: This evening Radiation: other Quality: other Consistency: other Improves with: other Worsens with: other Associated Symptoms: other - Related Data Previous Rx's Medication Instructions Recorded Last Taken Type Calcium Carbonate [Clec-Amp-875] 500 mg PO QDAY #30 tablet 08/25/19 Unknown Rx Multivitamin with Folic Acid [Cvs 400 mcg PO QDAY #30 tablet 08/25/19 Unknown Rx One Daily Essential Tablet] Thiamine [Vitamin B-1] 100 mg PO QDAY #30 tablet 08/25/19 Unknown Rx chlordiazePOXIDE [Librium] 25 mg PO Q6H PRN #20 capsule 08/25/19 Unknown Rx Allergies Allergy/AdvReac Type Severity Reaction Status Date / Time haloperidol [From Haldol] Allergy Unknown Verified 06/22/19 08:40 ED Review of Systems ROS: Stated complaint: SEIZURE Other details as noted in HPI Comment: Unobtainable due to pts medical conditions (intoxicated) ED Past Medical Hx - Past Medical History Hx Seizures: Yes - Social History Smoking Status: Former Smoker Substance Use Type: None - Medications Home Medications: Home Medications Medication Instructions Recorded Confirmed Last Taken Type Calcium Carbonate [Zoez-Qme-937] 500 mg PO QDAY #30 tablet 08/25/19 Unknown Rx Multivitamin with Folic Acid [[facility]vs 400 mcg PO QDAY #30 tablet 08/25/19 Unknown Rx One Daily Essential Tablet] Thiamine [Vitamin B-1] 100 mg PO QDAY #30 tablet 08/25/19 Unknown Rx chlordiazePOXIDE [Librium] 25 mg PO Q6H PRN #20 capsule 08/25/19 Unknown Rx ED Physical Exam - General Limitations: Other (intoxicated) General appearance: appears intoxicated - Head Head exam: Present: atraumatic, normocephalic - Eye Eye exam: Present: EOMI. Absent: normal appearance (chronic appearing opacity in the right eye) - ENT ENT exam: Present: normal exam, mucous membranes moist, normal external ear exam - Neck Neck exam: Present: normal inspection, full ROM. Absent: tenderness, meningismus - Respiratory Respiratory exam: Present: normal lung sounds bilaterally. Absent: respiratory distress - Cardiovascular Cardiovascular Exam: Present: regular rate, normal rhythm, normal heart sounds. Absent: bradycardia, tachycardia, irregular rhythm, systolic murmur, diastolic murmur, rubs, gallop - GI/Abdominal GI/Abdominal exam: Present: soft. Absent: distended, tenderness, guarding, rebound, rigid, pulsatile mass - Rectal Rectal exam: Present: deferred - Extremities Exam Extremities exam: Present: normal inspection, full ROM, other (2+ pulses noted in the bilateral upper and lower extremities. The pelvis is stable. There is no long bony tenderness. The muscular compartments are soft. There is no redness, pus, streaking or erythema.). Absent: pedal edema, calf tenderness - Back Exam Back exam: Present: normal inspection, full ROM. Absent: tenderness, CVA tenderness (R), paraspinal tenderness, vertebral tenderness - Neurological Exam Neurological exam: Present: other (there is no facial droop. The tongue is midline. Extraocular movements are intact bilaterally. Speaking in full sentences. Hearing is grossly intact. 5 out of 5 strength bilateral upper and lower extremities. Sensation is intact to light touch bilateral upper and lower extremities.). Absent: alert (alcohol intoxication), motor sensory deficit - Psychiatric Psychiatric exam: Present: flat affect - Skin Skin exam: Present: warm, dry, intact, normal color. Absent: rash ED Course Vital Signs 08/24/19 08/24/19 08/24/19 22:56 22:59 23:00 Temperature 97.2 F L Pulse Rate 88 95 H Respiratory 14 16 13 Rate Blood Pressure 129/94 133/91 Blood Pressure [Right] O2 Sat by Pulse 96 96 Oximetry 08/24/19 08/24/19 08/24/19 23:02 23:19 23:20 Temperature Pulse Rate 104 H Respiratory 11 L 19 14 Rate Blood Pressure 133/91 133/91 133/91 Blood Pressure [Right] O2 Sat by Pulse 97 95 96 Oximetry 08/24/19 08/24/19 08/24/19 23:22 23:24 23:26 Temperature Pulse Rate Respiratory 12 11 L 13 Rate Blood Pressure 133/91 133/91 133/91 Blood Pressure [Right] O2 Sat by Pulse 95 95 95 Oximetry 08/24/19 08/24/19 08/24/19 23:28 23:30 23:32 Temperature Pulse Rate Respiratory 15 14 13 Rate Blood Pressure 133/91 133/91 133/91 Blood Pressure [Right] O2 Sat by Pulse 95 97 96 Oximetry 08/24/19 08/24/19 08/24/19 23:34 23:36 23:38 Temperature Pulse Rate 85 82 90 Respiratory 12 11 L 16 Rate Blood Pressure 133/91 133/91 133/91 Blood Pressure [Right] O2 Sat by Pulse 96 94 Oximetry 08/24/19 08/24/19 08/24/19 23:40 23:42 23:44 Temperature Pulse Rate 90 90 97 H Respiratory 19 20 22 Rate Blood Pressure 133/91 133/91 133/91 Blood Pressure [Right] O2 Sat by Pulse 96 93 Oximetry 08/24/19 08/24/19 08/24/19 23:45 23:46 23:48 Temperature Pulse Rate 94 H 96 H 99 H Respiratory 15 14 13 Rate Blood Pressure 109/66 109/66 109/66 Blood Pressure [Right] O2 Sat by Pulse 93 95 94 Oximetry 08/24/19 08/24/19 08/24/19 23:50 23:52 23:54 Temperature Pulse Rate 97 H 103 H 102 H Respiratory 13 14 13 Rate Blood Pressure 133/91 133/91 133/91 Blood Pressure [Right] O2 Sat by Pulse 95 94 94 Oximetry 08/24/19 08/24/19 08/25/19 23:56 23:58 00:00 Temperature Pulse Rate 99 H 99 H 96 H Respiratory 13 13 12 Rate Blood Pressure 133/91 133/91 109/69 Blood Pressure [Right] O2 Sat by Pulse 94 93 94 Oximetry 08/25/19 08/25/19 08/25/19 00:02 00:04 00:06 Temperature Pulse Rate 93 H 88 95 H Respiratory 13 13 12 Rate Blood Pressure 109/69 109/69 109/69 Blood Pressure [Right] O2 Sat by Pulse 94 94 94 Oximetry 08/25/19 08/25/19 08/25/19 00:08 00:10 00:30 Temperature Pulse Rate 94 H 96 H 101 H Respiratory 12 13 15 Rate Blood Pressure 109/69 109/69 93/54 Blood Pressure [Right] O2 Sat by Pulse 94 94 94 Oximetry 08/25/19 08/25/19 08/25/19 01:00 01:30 02:00 Temperature Pulse Rate 97 H 89 105 H Respiratory 13 24 22 Rate Blood Pressure 94/54 111/58 118/76 Blood Pressure [Right] O2 Sat by Pulse 92 91 95 Oximetry 08/25/19 08/25/19 08/25/19 02:30 03:00 03:30 Temperature Pulse Rate 98 H 142 H 105 H Respiratory 19 27 H 14 Rate Blood Pressure 136/80 136/80 136/80 Blood Pressure [Right] O2 Sat by Pulse 93 94 93 Oximetry 08/25/19 08/25/19 08/25/19 04:00 04:30 05:00 Temperature Pulse Rate 110 H 111 H 121 H Respiratory 15 16 17 Rate Blood Pressure 136/80 Blood Pressure [Right] O2 Sat by Pulse 92 92 93 Oximetry 08/25/19 08/25/19 08/25/19 06:30 08:00 08:10 Temperature 99.3 F Pulse Rate 117 H 117 H 125 H Respiratory 13 15 Rate Blood Pressure 43/27 171/84 Blood Pressure 171/84 [Right] O2 Sat by Pulse 95 94 Oximetry 08/25/19 08/25/19 08/25/19 08:30 09:00 09:30 Temperature Pulse Rate 107 H 103 H 103 H Respiratory 18 15 15 Rate Blood Pressure 159/96 168/85 164/95 Blood Pressure [Right] O2 Sat by Pulse 94 94 95 Oximetry 08/25/19 08/25/19 08/25/19 10:00 10:30 11:00 Temperature Pulse Rate 106 H 103 H Respiratory 16 17 21 Rate Blood Pressure 175/106 175/106 175/106 Blood Pressure [Right] O2 Sat by Pulse Oximetry 08/25/19 08/25/19 08/25/19 11:30 12:13 12:30 Temperature Pulse Rate 94 H 107 H Respiratory 18 26 H Rate Blood Pressure 175/106 175/106 170/97 Blood Pressure [Right] O2 Sat by Pulse 97 97 Oximetry 08/25/19 13:59 Temperature Pulse Rate 99 H Respiratory Rate Blood Pressure Blood Pressure 168/91 [Right] O2 Sat by Pulse 98 Oximetry - Reevaluation(s) Reevaluation #1: 08/25/19 00:40 Differential diagnosis, including but not limited to: Alcohol intoxication, intracranial injury, cervical spine injury, electrolyte arrangement, seizure, pseudoseizure Assessment and plan: 59-year-old gentleman with possible seizure. He is afebrile with reassuring vital signs. He is moving 4 extremities spontaneously, protecting his airway, does not appear to have any blunt or penetrating traumatic injuries. Noncontrast CT scan of the brain and cervical spine were negative for acute disease. Blood alcohol level elevated at 0.35. Down to have mild hypokalemia, hypomagnesemia, hypocalcemia, likely secondary to malnutrition likely secondary to homelessness, as well as chronic alcohol use. Patient placed on ER hold. As needed medications ordered. Patient will remain in this department pending clinical sobriety, or pending a sober responsible adults shows up and is willing to claim responsibility for the patient. Reevaluation #2: 08/25/19 05:26 Sleeping comfortably in stretcher. No acute distress. Still intoxicated. Care will be transferred to the oncoming physician, Dr. Diop, to reassess and discharge once clinically sober. ED Medical Decision Making - Lab Data Result diagrams: 08/24/19 23:29 Vital Signs 08/24/19 08/24/19 08/24/19 22:56 23:00 23:02 Temperature 97.2 F L Pulse Rate 88 95 H 104 H Respiratory 14 13 11 L Rate Blood Pressure 129/94 133/91 133/91 O2 Sat by Pulse 96 96 97 Oximetry 08/24/19 08/24/19 08/24/19 23:19 23:20 23:22 Temperature Pulse Rate Respiratory 19 14 12 Rate Blood Pressure 133/91 133/91 133/91 O2 Sat by Pulse 95 96 95 Oximetry 08/24/19 08/24/19 08/24/19 23:24 23:26 23:28 Temperature Pulse Rate Respiratory 11 L 13 15 Rate Blood Pressure 133/91 133/91 133/91 O2 Sat by Pulse 95 95 95 Oximetry 08/24/19 08/24/19 08/24/19 23:30 23:32 23:34 Temperature Pulse Rate 85 Respiratory 14 13 12 Rate Blood Pressure 133/91 133/91 133/91 O2 Sat by Pulse 97 96 96 Oximetry 08/24/19 08/24/19 08/24/19 23:36 23:38 23:40 Temperature Pulse Rate 82 90 90 Respiratory 11 L 16 19 Rate Blood Pressure 133/91 133/91 133/91 O2 Sat by Pulse 94 Oximetry 08/24/19 08/24/19 08/24/19 23:42 23:44 23:45 Temperature Pulse Rate 90 97 H 94 H Respiratory 20 22 15 Rate Blood Pressure 133/91 133/91 109/66 O2 Sat by Pulse 96 93 93 Oximetry 08/24/19 08/24/19 08/24/19 23:46 23:48 23:50 Temperature Pulse Rate 96 H 99 H 97 H Respiratory 14 13 13 Rate Blood Pressure 109/66 109/66 133/91 O2 Sat by Pulse 95 94 95 Oximetry 08/24/19 08/24/19 08/24/19 23:52 23:54 23:56 Temperature Pulse Rate 103 H 102 H 99 H Respiratory 14 13 13 Rate Blood Pressure 133/91 133/91 133/91 O2 Sat by Pulse 94 94 94 Oximetry 08/24/19 08/25/19 08/25/19 23:58 00:00 00:02 Temperature Pulse Rate 99 H 96 H 93 H Respiratory 13 12 13 Rate Blood Pressure 133/91 109/69 109/69 O2 Sat by Pulse 93 94 94 Oximetry 08/25/19 08/25/19 08/25/19 00:04 00:06 00:08 Temperature Pulse Rate 88 95 H 94 H Respiratory 13 12 12 Rate Blood Pressure 109/69 109/69 109/69 O2 Sat by Pulse 94 94 94 Oximetry Lab Results 08/24/19 08/24/19 08/24/19 Range/Units 00:29 22:56 23:29 PT 13.7 (12.2-14.9) Sec. INR 1.04 (0.87-1.13) Sodium (137-145) mmol/L Potassium (3.6-5.0) mmol/L Chloride (98-107) mmol/L Carbon Dioxide (22-30) mmol/L Anion Gap mmol/L BUN (9-20) mg/dL Creatinine (0.8-1.5) mg/dL Estimated GFR ml/min BUN/Creatinine Ratio % Glucose (75-100) mg/dL Calcium (8.4-10.2) mg/dL Magnesium (1.7-2.3) mg/dL Total Creatine Kinase (55-170) units/L Salicylates (2.8-20.0) mg/dL Acetaminophen < 5.0 L (10.0-30.0) ug/mL Plasma/Serum Alcohol 0.35 H (0-0.07) % 08/24/19 08/24/19 Range/Units 23:29 23:29 PT (12.2-14.9) Sec. INR (0.87-1.13) Sodium 141 (137-145) mmol/L Potassium 3.5 L (3.6-5.0) mmol/L Chloride 104.9 (98-107) mmol/L Carbon Dioxide 21 L (22-30) mmol/L Anion Gap 19 mmol/L BUN 8 L (9-20) mg/dL Creatinine 0.7 L (0.8-1.5) mg/dL Estimated GFR > 60 ml/min BUN/Creatinine Ratio 11 % Glucose 98 (75-100) mg/dL Calcium 8.2 L (8.4-10.2) mg/dL Magnesium 1.50 L (1.7-2.3) mg/dL Total Creatine Kinase 157 (55-170) units/L Salicylates 0.7 L (2.8-20.0) mg/dL Acetaminophen (10.0-30.0) ug/mL Plasma/Serum Alcohol (0-0.07) % - EKG Data -: EKG Interpreted by Ut EKG shows normal: sinus rhythm Rate: normal - EKG Data When compared to previous EKG there are: no significant change Interpretation: no acute changes 08/25/19 00:42 The EKG appears to be unchanged from prior EKGs. There is a sinus rhythm, 87 bpm, normal axis, QTC 462 ms, poor R progression, borderline left ventricular hypertrophy, mild motion artifact, not consistent with ST elevation myocardial infarction, unchanged from prior EKG from 2018. - Radiology Data Radiology results: report reviewed, image reviewed Noncontrast CT scan of the brain is negative for acute disease, noncontrast CT scan of cervical spine is negative for acute disease. Critical care attestation.: If time is entered above; I have spent that time in minutes in the direct care of this critically ill patient, excluding procedure time. ED Disposition Clinical Impression: Alcohol intoxication, Malnutrition Disposition: DC-01 TO HOME OR SELFCARE Is pt being admited?: No Does the pt Need Aspirin: No Condition: Good Additional Instructions: Take the medications as needed and directed. Use Librium medication if patient requests/desires detoxification from alcohol. Patient should only take Librium if he is not consuming alcohol. Otherwise, do not take Librium with alcohol. This may cause a life- threatening overdose. Do not drive or operate motor vehicles for the next 6 months, or until cleared to do so by a primary care doctor. Follow-up with her primary care doctor within the next 7-10 days. Return to the emergency room right away with you, worsened or different symptoms, or symptoms not present on initial emergency room evaluation. Prescriptions: Multivitamin with Folic Acid [Cvs One Daily Essential Tablet] 400 mcg PO QDAY #30 tablet chlordiazePOXIDE [Librium] 25 mg PO Q6H PRN #20 capsule PRN Reason: Alcohol Withdrawal Calcium Carbonate [Oryp-[id number]-913] 500 mg PO QDAY #30 tablet Thiamine [Vitamin B-1] 100 mg PO QDAY #30 tablet Referrals: FRANCIA MARTE MD [Primary Care Provider] - 3-5 Days
[2019-08-24] MEDS ORDERED: LORazepam 2 MG/ML VIAL IM PRN (23:44)
[2019-08-24] MEDS ORDERED: ZIPRASIDONE MESYLATE 20 MG VIAL IM PRN (23:44)
--- NOTE | 2019-08-24 23:56 | Cat Scan Report ---
CLINICAL DATA: etoh intox sz TECHNICAL DATA: CT imaging of the cervical spine was performed in the axial, sagittal, and coronal projections and bon ne algorithm in axial projection in the soft tissue algorithm. All CT scans at this location are performed using CT dose reduction for ALARA by means of automated e xposure control. FINDINGS: The ring of C1 is normal. The odontoid is normal. There is no evidence of an offset. There is no e vidence of a fracture. However, degenerative changes are present with narrowing of the C1 odontoid j unction. The spinal canal is well maintained. C2-C3: The spinal canal is well maintained. The neural foramina are normal. The vertebral bodies a re normal. The posterior elements are intact. There is no evidence of a fracture. C3-C4: The spinal canal is well maintained. The neural foramina are normal. The vertebral bodies a re normal. The posterior elements are intact. There is no evidence of a fracture. C4-C5: The spinal canal is well maintained. The neural foramina are normal. The vertebral bodies a re normal. The posterior elements are intact. There is no evidence of a fracture. C5-C6: Marked intervertebral disc space narrowing is present with anterior and posterior osteophytes . The spinal canal is well maintained. The neural foramina are normal. The vertebral bodies are no rmal. The posterior elements are intact. There is no evidence of a fracture. C6-C7: The spinal canal is well maintained. The neural foramina are normal. The vertebral bodies a re normal. The posterior elements are intact. There is no evidence of a fracture. C7-T1: The spinal canal is well maintained. The neural foramina are normal. The vertebral bodies a re normal. The posterior elements are intact. There is no evidence of a fracture. IMPRESSION: No acute traumatic abnormality. Degenerative changes as noted. Signer Name: Brenden Valles MD Signed: 08/24/2019 11:52 PM Workstation Name: [id number]
--- NOTE | 2019-08-24 23:56 | Cat Scan Report ---
CT HEAD WITHOUT CONTRAST HISTORY: etoh intox sz COMPARISON: 06/22/2019 TECHNIQUE: CT imaging of the head was performed in the axial, sagittal, and coronal projections and bone algori thm in axial projection in the soft tissue algorithm. All CT scans at this location are performed using CT dose reduction for ALARA by means of automated e xposure control. CONTRAST: None. FINDINGS: Exam is compared to 06/22/2019 Cerebral and Cerebellar Hemispheres: Moderate cerebral and cerebellar atrophy is present. No evidence of mass or mass effect. No midline shift. No acute hemorrhage. No acute cortical infarction. No extra-axial fluid collection. Mild deep white matter disease is present Ventricles: Prominent ventricular system is noted. Osseous Structures: No significant abnormality. Visualized Paranasal Sinuses: No significant abnormality. Additional Findings: None IMPRESSION: 1. No acute intracranial abnormality. Please see comments NOTE: Acute infarct may not be visible by noncontrast CT. Signer Name: Brenden Valles MD Signed: 08/24/2019 11:51 PM Workstation Name: [id number]
[2019-08-25 00:14] LABS: INR 1.04 (0.87-1.13)
[2019-08-25 00:19] LABS: BUN/Creatinine Ratio 11; Blood Urea Nitrogen 8 mg/dL (9-20); Calcium 8.2 mg/dL (8.4-10.2); Hemolysis Index 8
[2019-08-25] MEDS ORDERED: POTASSIUM CHLORIDE ER 20 MEQ TAB PO ONE (00:30)
[2019-08-25] MEDS ORDERED: MAGNESIUM OXIDE 400 MG TAB PO STA (00:30)
[2019-08-25] MEDS ORDERED: CALCIUM CARBONATE 500 MG TAB CHEW PO ONE (00:30)
[2019-08-25] MEDS ORDERED: SODIUM CHLORIDE 0.9% 1000 ML 2,000 ML IV ONE (05:05)
[2019-08-25] MEDS ORDERED: D5W/0.45% NACL 1,000 ML IV SCH (06:00)
[2019-08-25] MEDS ORDERED: DEXTROSE 50% IN WATER (25GM) 50 ML SYRINGE IV ONE (13:12)
[2019-08-25 14:01] VITALS: BP 168/91
== END 2019-08-25 13:40 | disposition home or self-care (01) ==
LOC: ED 22:39
DX: F10.929 Alcohol use, unspecified with intoxication, unspecified (principal); E46 Unspecified protein-calorie malnutrition; Z87.891 Personal history of nicotine dependence; Z88.8 Allergy status to other drugs, medicaments and biological substances
CPT/HCPCS: 36415; 70450; 72125; 80048; 80185; 80186; 82550; 82962; 83735; 85610; 93005; 93010; J7030; 80320; G0480